=== PATIENT | female | born 2000 | race Caucasian/White ===

== ENCOUNTER 2023-06-20 14:36 | Emergency (ER) | payer MEDICAID, OTHER ==
[~2023-06-20] VITALS: Ht 157.5 cm; Wt 53.7 kg
[~2023-06-20 14:36] MED LIST: ONDA4TAB6 PO
[2023-06-20 14:51] VITALS: BP 123/72; PULSE 87; O2SAT 100
[2023-06-20 15:28] VITALS: RESP 18
--- NOTE | 2023-06-20 15:45 | NUR ---
ANESTHESIA ASSISTANT ASSESSMENT REVIEWED BY CAMELIA COYNE RN; APPROVED
[2023-06-20 16:26] VITALS: TEMP 98
== END 2023-06-20 16:28 | disposition home or self-care (01) ==
LOC: ER 14:37
DX: S41.112A Laceration without foreign body of left upper arm, initial encounter (principal); X58.XXXA Exposure to other specified factors, initial encounter; Y93.89 Activity, other specified; Y92.89 Other specified places as the place of occurrence of the external cause; Y99.8 Other external cause status
CPT/HCPCS: 12001; 99282; A6258

== ENCOUNTER 2024-08-01 14:56 | Emergency (ER) | payer MEDICAID, OTHER | END 2024-08-01 16:26 | disposition left against medical advice (07) | LOC: ER 14:56 | DX: O26.90 Pregnancy related conditions, unspecified, unspecified trimester (principal); Z53.21 Procedure and treatment not carried out due to patient leaving prior to being seen by health care provider ==

== ENCOUNTER 2025-04-20 17:06 | Emergency (ER) | payer MEDICAID ==
[~2025-04-20] VITALS: Ht 157.5 cm; Wt 53.1 kg
[2025-04-20 17:11] VITALS: BP 122/77; PULSE 78; RESP 16; TEMP 97.4; O2SAT 100
[2025-04-20 17:56] LABS: MEAN PLATELET VOLUME 7.7 FL (7.4-10.4); RED CELL DISTRIBUTION WIDTH 12.7 % (11.5-14.5)
[2025-04-20 18:15] LABS: CREATININE 0.53 MG/DL (0.40-0.90); TOTAL CARBON DIOXIDE 28.9 MMOL/L (24-32); eCRCL 126 ML/MIN; eGFR > 90 ML/MIN
[2025-04-20 18:46] LABS: URINE HCG NEGATIVE (NEG)
[2025-04-20 19:15] LABS: LEUKOCYTE ESTERASE ,URINE MODERATE (Neg); NITRITES, URINE NEGATIVE (Neg); OCCULT BLOOD,URINE TRACE-INTACT (Neg)
[2025-04-20 19:21] LABS: UA COLLECTION TYPE CLN CATCH MIDSTREAM
[2025-04-20 19:36] LABS: SQUAMOUS EPITHELIAL CELL,UR NONE SEEN /LPF (FEW)
--- NOTE | 2025-04-20 19:56 | Physician Documentation ---
History of Present Illness ~ Chief Complaint: Abdominal Pain w/vomiting Stated Complaint: MULTIPLE MED COMPLAINTS HPI This is a 25-year-old female who presents with poor appetite and feelings of depression after giving 30 days prior, patient additionally reports frequent episodes of nausea and vomiting especially after eating. Patient is reporting no HI or SI. Medication Reconciliation Allergies: Coded Allergies: No Known Allergies (Unverified , 04/20/25) Scheduled Ondansetron Hcl (Zofran), 1 TAB PO Q8H Past Medical History Past Medical History: No Pertinent History Alcohol Use: None Drug Use: none Lives In: Home Occupation: employed Review of Systems ROS As stated above in the HPI, otherwise all systems are reviewed and negative. Physical Exam Vital Signs: Temperature: 97.4, Heart Rate: 78, Respiratory Rate: 16, BP: 122/77, Pulse Oximetry: 100, Weight: 53.100 Oxygen Flow Rate: 0 Physical Exam VITALS: Reviewed and as above. GENERAL: Alert, nontoxic appearing, no apparent distress. RESPIRATORY: No increased work of breathing, no respiratory distress, speaking in full clear sentences Progress Results/Orders Results/Orders Orders - DEBORAH KENDALLP Cult Urine + [place] [address] (04/20/25 19:37) Completed Orders - DEBORAH KENDALLP Hcg, Ur Ql (04/20/25 17:20) Cbc/Diff (04/20/25 17:20) BMP (04/20/25 17:20) Lipase (04/20/25 17:20) Ua W/Microscopic, Cult If Ind (04/20/25 17:57) Vital Signs 04/20/25 17:11 Temp 97.4 Pulse 78 Resp 16 B/P (MAP) 122/77 Pulse Ox 100 O2 Flow Rate 0 Laboratory Tests Test 04/20/25 17:41 04/20/25 17:57 White Blood Count 9.1 Red Blood Count 4.26 Hemoglobin 14.0 Hematocrit 41.1 Mean Corpuscular Volume 96.4 Mean Corpuscular Hemoglobin 32.9 H Mean Corpuscular Hemoglobin Concent 34.2 Red Cell Distribution Width 12.7 Platelet Count 232 Mean Platelet Volume 7.7 Neutrophils (%) (Auto) 78.9 H Lymphocytes (%) (Auto) 16.0 L Monocytes (%) (Auto) 4.4 Eosinophils (%) (Auto) 0.3 Basophils (%) (Auto) 0.4 Neutrophils # (Auto) 7.2 Lymphocytes # (Auto) 1.5 Monocytes # (Auto) 0.4 Eosinophils # (Auto) 0.0 Basophils # (Auto) 0.0 CBC Comment Sodium Level 142 Potassium Level 3.7 Chloride Level 102 Carbon Dioxide Level 28.9 Anion Gap 11 Blood Urea Nitrogen 9 Creatinine 0.53 Estimated GFR/1.73 m2 > 90 BUN/Creatinine Ratio 17.0 Glucose Level 91 Calcium Level 9.0 Albumin 4.4 Lipase 43 Chemistry Comments Urine Specimen Description Cln catch midstream Urine Color Yellow Urine Clarity Cloudy Urine pH 6.5 Urine Specific [place] 1.020 Urine Protein Trace Urine Glucose (UA) Negative Urine Ketones 15 H Urine Occult Blood Trace-intact Urine Nitrite Negative Urine Bilirubin Small Urine Urobilinogen 1.0 Urine Leukocyte Esterase Moderate H Urine RBC 0-2 Urine WBC 5-10 H Urine Squamous Epithelial Cells None seen Urine Bacteria 2+ Urine Culture Indicated Indicated Volume Urine Centrifuged 10 ml Urine HCG, Qualitative Negative Urine Comment Microbiology Date/Time Source Procedure Growth Status 04/20/25 19:37 Urine Clean Catch Midstream Urine Culture - Preliminary NO GROWTH AFTER 1 DAY Resulted Medical Decision Making Findings MSE performed in triage and patient returned to ED lobby by nursing staff to await available ED room. Patient was hemodynamically stable and appropriate for ED lobby weight, additionally reassuring patient reporting no HI or SI. Patient appears to have eloped from lobby. Diff Dx N/V/D:Considerations: Include: Appendicitis, DKA, Diverticulitis, Diverticulosis, Drug toxicity, Electrolyte imbalance, Food poisoning, Gastroenteritis, GE reflux, GI bleed, Hypovolemia, Hypotension, Inflammatory BD, Malnutrition, , PUD, Renal failure, Urolithiasis, Urinary obstruction, UTI Additional Comments Additionally considered: Anorexia, depression, suicidal ideation, homicidal ideation, generalized depression, anxiety disorder Departure Disposition: 07 LEFT AWOL/ELOPED Impression: Primary Impression: Nausea & vomiting Qualified Codes: R11.2 - Nausea with vomiting, unspecified Referrals: NO PRIMARY CARE PROVIDER (PCP) Signature Scribe Signature: No scribe Attestation: The note accurately reflects work and decisions made by me.DAVID Shannon 04/21/25 12:10 DEBORAH KENDALL Apr 20, 2025 19:56
== END 2025-04-20 22:03 | disposition left against medical advice (07) ==
LOC: ER 17:06
DX: R11.2 Nausea with vomiting, unspecified (principal); F32.A Depression, unspecified; Z79.899 Other long term (current) drug therapy
CPT/HCPCS: 36415; 80048; 81001; 81025; 83690; 85025; 87088; 99283